=== PATIENT | male | born 1940 | race Caucasian/White ===

== ENCOUNTER 2024-03-19 05:49 | Emergency (ER) | payer SELFPAY ==
[2024-03-19 05:50] VITALS: BP 135/63; PULSE 68; TEMP 36.6; O2SAT 99
--- NOTE | 2024-03-19 06:07 | ED.MALEGU1 ---
HPI - Male Genitourinary General Chief complaint: Urogenital-Male Stated complaint: SWOLLEN GROIN Time Seen by Provider: 03/19/24 05:55 Source: patient and EMR Mode of arrival: ambulance History of Present Illness HPI Narrative: 83-year-old male presents to the emergency department for swelling to his penis. He is uncircumcised and his foreskin was retracted and could not be reduced. He comes in from [facility]. He is unable to provide any history. It is not clear to me how long this issue has been present. Related Data Home Medications ?Medication ?Instructions ?Recorded ?Confirmed cholecalciferol (vitamin D3) 125 5,000 unit PO DAILY 03/19/24 03/19/24 mcg (5,000 unit) tablet cyanocobalamin (vitamin B-12) 500 500 mcg PO BID 03/19/24 03/19/24 mcg tablet (Vitamin B-12) donepezil 5 mg tablet 5 mg PO DAILY 03/19/24 03/19/24 haloperidol 2 mg tablet 2 mg PO Q6H PRN agitation 03/19/24 03/19/24 risperidone 1 mg tablet (Risperdal) 1 mg PO DAILY 03/19/24 03/19/24 simvastatin 40 mg tablet 40 mg PO DAILY 03/19/24 03/19/24 tamsulosin 0.4 mg capsule 0.4 mg PO DAILY 03/19/24 03/19/24 Allergies Allergy/AdvReac Type Severity Reaction Status Date / Time No Known Drug Allergies Allergy Verified 03/19/24 05:53 Review of Systems ROS Narrative Not obtainable, age Exam Narrative Exam Narrative: Nurses note and vital signs reviewed and patient is not hypoxic. General: The patient appears in no acute distress Skin: Warm, dry, no pallor noted. There is no rash noted. Head: Normocephalic, atraumatic Eye: Normal conjunctiva, no drainage Ears, Nose, Mouth, and Throat: oral mucosa is moist. Nares patent. Cardiovascular: Regular Rate and Rhythm Respiratory: Patient is in no distress, no accessory muscle use, lungs are clear to auscultation, no wheezing, rales or rhonchi GI: Soft and nontender : On exam the distal aspect of his foreskin is retracted and edematous. Musculoskeletal: No joint swelling Neurological: Awake and alert Psychiatric: Cooperative Constitutional Vital Signs, click to edit/add: Last Vital Signs Temp 97.8 F 03/19/24 05:50 Pulse 68 03/19/24 05:50 Resp 18 03/19/24 05:50 BP 135/63 03/19/24 05:50 Pulse Ox 99 03/19/24 05:50 Course Vital Signs Vital signs: Vital Signs Temperature 97.8 F 03/19/24 05:50 Pulse Rate 68 03/19/24 05:50 Respiratory Rate 18 03/19/24 05:50 Blood Pressure 135/63 03/19/24 05:50 Pulse Oximetry 99 03/19/24 05:50 Temperature 97.8 F 03/19/24 05:50 Pulse Rate 68 03/19/24 05:50 Respiratory Rate 18 03/19/24 05:50 Blood Pressure 135/63 03/19/24 05:50 Pulse Oximetry 99 03/19/24 05:50 MDM - Male Genitourinary MDM Narrative Medical decision making narrative: The paraphimosis has been reduced by me. We have applied ice pack and the patient is being observed and is signed out to Dr. Cyr. There are no physical findings of infection on exam Differential Diagnosis Differential diagnosis: Likely other (Paraphimosis, cellulitis, edema) Discharge Plan Discharge Patient Disposition: Still a Patient Procedures ED Procedure Instructions Procedures Procedures: Using manual traction I was able to reduce the paraphimosis. No bleeding present. No purulent drainage.
--- NOTE | 2024-03-19 06:20 | PC.NURSE ---
Patient is uncircumcised, foreskin had been pulled back and nor pushed back over tip of penis. The foreskin was swollen around tip of penis and very difficult to push back. Dr. Collazo was able to get the foreskin to go back over tip of penis. Ice pack placed over genitals.
== END 2024-03-19 09:10 | disposition home or self-care (01) ==
PROVIDERS: Emergency Provider Emergency Medicine; PCP Family Medicine
DX: N47.2 Paraphimosis (principal)
CPT/HCPCS: 99282